=== PATIENT | male | born 1975 | race Caucasian/White ===

== ENCOUNTER 2021-04-24 18:32 | Inpatient (IN) | payer BC, OTHER ==
[~2021-04-24] VITALS: Ht 167.6 cm; Wt 77.1 kg
[2021-04-24 18:32] VITALS: BP 116/91
[2021-04-24 20:09] LABS: HEMOGLOBIN 12.9 gm/dL (14.0-18.0); MCH 29.7 pg (26.0-34.0); MCHC 33.9 g/dL (28.0-37.0); MCV 87.5 fL (80.0-100.0); RBC 4.34 mil/uL (4.50-6.00); RDW 12.9 % (10.5-14.5); WBC 11.2 thou/uL (4.0-11.0)
[2021-04-24] MEDS ORDERED: TRESIBA FL100 UNIT/1 SUBQ (20:14)
[2021-04-24] MEDS ORDERED: LIPITOR 20 MG T20 M1 PO (20:15)
[2021-04-24] MEDS ORDERED: METFORMIN HCL500 M3 PO (20:15)
[2021-04-24 21:00] LABS: CALCIUM 8.8 mg/dL (8.5-10.1); POTASSIUM 4.2 mmol/L (3.5-5.1)
[2021-04-24 21:06] LABS: ALBUMIN 4.1 g/dL (3.4-5.0); TOTAL BILIRUBIN 0.3 mg/dL (0.2-1.0); TOTAL PROTEIN 8.2 g/dL (6.4-8.2)
[2021-04-24 21:10] VITALS: BP 126/80
--- NOTE | 2021-04-24 22:26 | H ---
[facility] [place] [address] HISTORY AND PHYSICAL Name: MECHE MCKNIGHT Room #: 170-9 ADM IN .R.#: [id number] Admission: 04/24/21 Attend Phys: Avelino Escamilla MD Discharge: Date of : 71 Report #: [id number] THIS REPORT FOR: cc: FAM - Family physician unknown FAM - Family physician unknown Rolando Erickson MD ~ DATE OF SERVICE: 04/24/2021 CHIEF COMPLAINT: Right hand laceration with open fracture second metacarpal. 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 He was injured earlier today when he was using a saw, the saw jumped awkwardly striking the dorsal aspect of the right hand resulting in a long laceration in line with the second metacarpal extending down toward the base of the thumb. He was seen at [facility] where x-rays apparently confirmed a fracture of the second metacarpal, although those films are not available for my review at this time. The wound was irrigated, but left open. There was some question about the extent of soft tissue and a possible tendon injury. He was referred to this hospital for further evaluation. At the time of my evaluation, he is alert and oriented and denies any other areas of injury. He notes he does have a history of diabetes and is on 30 units of insulin daily. He denies any other significant medical problems, but does have occasional difficulty with asthma. He has not had any significant medical issues recently. He denies any other areas of injury aside from the right hand. Although he states he felt some weakness and numbness initially after the accident, he now feels he has good movement of all digits, although with some discomfort involving the index finger. He feels he has normal sensation on both the dorsum and volar aspect of the thumb and the index finger. PHYSICAL EXAMINATION: GENERAL: He is alert and oriented. LUNGS: Clear. CARDIOVASCULAR: Reveals a regular rate and rhythm without murmurs. ABDOMEN: Soft and nontender. EXTREMITIES: Within normal limits with the exception of the right hand. The right hand reveals a deep laceration extending obliquely over the dorsum of the second metacarpal extending down toward the base of the thumb. The wound appears to have been irrigated and appears generally clean. There is not much bleeding at this point. He does demonstrate satisfactory strength in extension and flexion of the index finger, although there is discomfort and some weakness. He also seems to have satisfactory strength in both flexion and extension of the thumb. He notes mild dysesthesia of those 2 digits, but in general feels his sensation is fairly normal. He seems to have normal sensation the other three digits. No other significant abnormalities are noted. [address] [address] HISTORY AND PHYSICAL Name: JUAN LUISMECHE Room #: 170-9 ADM IN M.R.#: [id number] Admission: 04/24/21 Attend Phys: Avelino Escamilla MD Discharge: Date of : 71 Report #: [id number] X-rays of the hand are pending at the time of this dictation. I have explained to the patient that he does have a rather large laceration with significant soft tissue injury and apparently a fracture of the second metacarpal. I would suggest going ahead with surgical debridement emergently this evening. He has received, I believe 1 gram of Ancef at the outside [facility]. I have ordered another gram of Ancef as well as a dose of gentamicin, but those have not yet been administered at the time of this dictation. Pending the operative findings, we will consider further treatment measures. <ELECTRONICALLY SIGNED> By: Rolando Erickson MD 04/24/212225 27 39 Rolando Erickson MD /nt
[2021-04-25 06:30] LABS: HEMATOCRIT 35.4 % (42.0-52.0); HEMOGLOBIN 12.1 gm/dL (14.0-18.0); MCH 30.1 pg (26.0-34.0); MCHC 34.2 g/dL (28.0-37.0); MCV 87.9 fL (80.0-100.0); RBC 4.03 mil/uL (4.50-6.00); WBC 10.2 thou/uL (4.0-11.0)
--- NOTE | 2021-04-25 06:48 | NUR ---
PT ARRIVED ON UNIT AT 2250. PT IS ALERT AND ORIENTED X4. PT HAS CONCHITA WRAP, GAUZE AND SPLINT TO THE R HAND WITH NO SIGN OF DRAINGE. PT HAS PIV TO RW WITH NS AT 126MLS/HR. PT TOLERATING RA. PT ORIENTED TO ROOM AND EDUCATED ON THE USE OF CALL LIGHT. WILL CONTINUE TO MONITOR.
[2021-04-25 06:49] LABS: CALCIUM 8.2 mg/dL (8.5-10.1); CREATININE 0.8 mg/dL (0.7-1.3); POTASSIUM 3.8 mmol/L (3.5-5.1)
--- NOTE | 2021-04-25 08:33 | O ---
[facility] [place] [address] OPERATIVE REPORT Name: MECHE MCKNIGHT Room #: 463-P ADM IN M.R.#: [id number] Admission: 04/24/21 Attend Phys: Avelino Escamilla MD Discharge: Date of : 71 Report #: [id number] THIS REPORT FOR: cc: FAM - Family physician unknown FAM - Family physician unknown Rolando Erickson MD ~ DATE OF SERVICE: 04/24/2021 PREOPERATIVE DIAGNOSIS: Complex contaminated right hand laceration with open fracture second metacarpal. POSTOPERATIVE DIAGNOSIS: Complex contaminated right hand laceration with open fracture second metacarpal. PROCEDURE: Debridement, irrigation and limited wound repair and closure, right hand. 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 This resulted in a deep laceration extending into the first webspace of the right hand along the dorsal aspect. This resulted in a transverse fracture of the second metacarpal at about the junction of the proximal and middle thirds. Preoperative evaluation revealed that extensor and flexor tendon function seems to be intact. He seems also to have generally good neurologic function and sensation, although with some dysesthesia along the opposing borders of the thumb and index finger. Vascular status appears to be satisfactory. We discussed treatment options and elected to go ahead with aggressive surgical irrigation and debridement. I have explained preoperatively that I would not be inclined to attempt to fix the fracture at this time, but will leave that for a later date. DESCRIPTION OF PROCEDURE: The patient was taken to the operating room where he was placed under general anesthesia. Intravenous antibiotics were given including Ancef 1 gram and gentamicin at a dosing level prescribed by the pharmacy department. The right hand was then aggressively prepped and draped. An Esmarch bandage was used to exsanguinate the hand and left at the mid forearm as a gentle tourniquet. The wound was then further aggressively irrigated. Surprisingly, the soft tissues and skin edges appeared to be fairly clean. There really was not much if any contamination. There was mild comminution of the bony fracture and some small fragments of bone were removed. The laceration involves nearly complete laceration through the first webspace with complete separation of the adductor pollicis muscle. This extends out along the ulnar border of the thumb, exposing the ulnar capsule. The capsule and ulnar collateral ligament appeared to be intact and the thumb carpometacarpal joint [address] [address] OPERATIVE REPORT Name: MECHE MCKNIGHT Room #: 463-P [facility] IN M.R.#: [id number] Admission: 04/24/21 Attend Phys: Avelino Escamilla MD Discharge: Date of : 71 Report #: [id number] seems to be intact and stable. The laceration does not extend out onto the distal thumb and it appears that there is no involvement of either the flexor or extensor tendon. The more proximal aspect of the laceration extends over the dorsal aspect of the second metacarpal; however, the extensor tendon appears to be intact and stable. The fracture is mildly comminuted and several fragments were removed, but there was no extensive loss of length. The fracture could be perched out end-to-end with fairly good alignment and stability. The medullary canal was carefully inspected and irrigated to try to remove any loose debris. At this point, I felt the wound was actually clean and felt that loose closure would probably be appropriate. I did take a culture of the soft tissues and this was sent to the lab. The muscle and muscle fascial layer were loosely reapproximated using 3-0 Monocryl. The subcutaneous tissues were also loosely approximated with 3-0 Monocryl. The skin edges were loosely reapproximated using 4-0 nylon. The Esmarch bandage was removed. Good hemostasis was confirmed. A gently compressive sterile dressing was then applied. Plaster splints were applied holding the thumb and index finger in a neutral position. The patient was then awakened and returned to recovery room in good condition. <ELECTRONICALLY SIGNED> By: Rolando Erickson MD 04/25/21 0833 [id number] Rolando Erickson MD /nt
[2021-04-25 10:24] VITALS: BP 126/80
--- NOTE | 2021-04-25 11:27 | NUR ---
ASSUMED PT CARE THIS AM. PT A&OX4, ABLE TO MAKE NEEDS KNOWN. PATIENT REPORTING PAIN TO THE RIGHT HAND THAT DECREASES WITH PAIN MEDICATION ORDERED PER EMAR. IV REMAINS PATENT, SALINE LOCKED. PATIENT DENIES NUMBNESS OR TINGLING, AND IS ABLE TO MOVE FINGERS IN RIGHT HAND WITH SOME STIFFNESS REPORTED. MEDICATION TAKEN WITHOUT ISSUE. PATIENT REMAINS CONTINENT, AND USES CALL LIGHT WHEN NEEDED.
[2021-04-25] MEDS ORDERED: AUGMENTIN 875-1 EACH PO (13:30)
[2021-04-25] MEDS ORDERED: NORCO5 PO (13:30)
[2021-04-25] MEDS ORDERED: ACETAMINOPHEN325 M1 PO (13:30)
--- NOTE | 2021-04-25 14:21 | NUR ---
PT GOING HOME AND WILL FOLLOW UP WITH SURGEON TUESDAY. SEE OT VARIANCE
[2021-04-26 05:36] LABS: GLYCOHEMOGLOBIN (HGB A1C) 9.7 % (4.8-5.6)
== END 2021-04-25 15:25 | disposition home or self-care (01) | DRG 513 ==
LOC: ER 18:32 → EROBS 20:25 → 4W 21:10
PROVIDERS: Nurse Practitioner Family; Physician Assistant; ADMIT Hospitalist; ATTEND Hospitalist
DX: S62.300B Unspecified fracture of second metacarpal bone, right hand, initial encounter for open fracture (principal); S66.922A Laceration of unspecified muscle, fascia and tendon at wrist and hand level, left hand, initial encounter; L03.113 Cellulitis of right upper limb; I10 Essential (primary) hypertension; E78.5 Hyperlipidemia, unspecified; E11.9 Type 2 diabetes mellitus without complications; Z20.822 Contact with and (suspected) exposure to COVID-19; Z79.899 Other long term (current) drug therapy; Z79.4 Long term (current) use of insulin; W27.0XXA Contact with workbench tool, initial encounter; Y93.89 Activity, other specified; Y92.89 Other specified places as the place of occurrence of the external cause; Y99.8 Other external cause status
CPT/HCPCS: 10040; 50010; 50101; 50386; 51736; 56526; 56527; 57091; 62110; 62900; 70005